=== PATIENT | female | born 1935 | race Caucasian/White ===

== ENCOUNTER 2023-08-12 16:23 | Emergency (ER) | payer OTHER ==
[~2023-08-12] VITALS: Ht 160 cm; Wt 85.0 kg
[~2023-08-12 16:23] MED LIST: ASPI-1009 PO; CETI10CA PO; CHOL100010 PO; CYAN1TAB41 PO; GLUC-219 PO; L. A1CAP7 PO; NAPR220C15 PO; OMEG-79 PO; RED30POW PO; SYN0.0125T PO
[2023-08-12 16:27] VITALS: BP 155/58; PULSE 77; RESP 16; TEMP 98.5; O2SAT 96
== END 2023-08-12 17:29 | disposition home or self-care (01) ==
LOC: ER 16:25
DX: S42.291A Other displaced fracture of upper end of right humerus, initial encounter for closed fracture (principal); W18.39XA Other fall on same level, initial encounter; Y93.89 Activity, other specified; Y92.89 Other specified places as the place of occurrence of the external cause; Y99.8 Other external cause status
CPT/HCPCS: 73030; 99283

== ENCOUNTER 2025-06-30 11:42 | Emergency (ER) | payer OTHER ==
[~2025-06-30] VITALS: Ht 157.5 cm; Wt 84.1 kg
[2025-06-30 12:37] LABS: LEUKOCYTE ESTERASE ,URINE TRACE (Neg); NITRITES, URINE NEGATIVE (Neg); OCCULT BLOOD,URINE TRACE-INTACT (Neg)
[2025-06-30 12:41] LABS: UA COLLECTION TYPE CLN CATCH MIDSTREAM
[2025-06-30 12:42] LABS: MUCUS STRANDS FEW /LPF (Neg); SQUAMOUS EPITHELIAL CELL,UR NONE SEEN /LPF (FEW)
[2025-06-30 13:11] LABS: MEAN PLATELET VOLUME 8.2 FL (7.4-10.4); RED CELL DISTRIBUTION WIDTH 13.5 % (11.5-14.5)
[2025-06-30 13:20] LABS: CREATININE 0.72 MG/DL (0.40-0.90); TOTAL CARBON DIOXIDE 26.0 MMOL/L (24-32); eCRCL 42 ML/MIN; eGFR 76 ML/MIN
--- NOTE | 2025-06-30 15:29 | Physician Documentation ---
History of Present Illness ~ Chief Complaint: Urinary Symptoms Stated Complaint: UTI/ABNORMAL LABS Time Seen by MD: 14:02 Source: patient, family Mode of Arrival: POV Exam Limitations: no limitations HPI Patient is accompanied by her daughter. She was sent from [facility] for urinary tract infection. States that she has had frequent urinary tract infections ongoing for the past couple of years. Has been on antibiotics since the beginning of June for her current symptoms. States intermittently feels like the cyst that rupture . She states that she feels like she can not sit down secondary to this. She has had blood in her urine but none currently. Last urine culture finalized on March 29, 2025 which showed susceptibility to Levaquin. Sent for liquid antibiotics" Medication Reconciliation Allergies: Coded Allergies: codeine (Verified Allergy, Intermediate, RASH, N/V, SORES, 03/12/16) phenobarbital (Verified Allergy, Mild, "A LITTLE PUTS ME DOWN", 03/12/16) Procaine HCl (Verified Allergy, Unknown, 01/15/13) Uncoded Allergies: COFFEE (Allergy, Mild, UPSET STOMACH, 07/22/16) Scheduled Aspirin (Aspirin), 81 MG PO DAILY, (Reported) Cetirizine Hcl (Zyrtec), 10 MG PO DAILY, (Reported) Cholecalciferol* (Vitamin D*), 2,000 UNITS PO DAILY, (Reported) Cyanocobalamin/Folic Acid (Vitamin C42-Dbddl Acid Tablet), 1 EACH PO DAILY, (Reported) Gluc/MSM/C/[place]/Manganese/Coco (Joint Support Complex Softgel), 1 TAB PO DAILY, (Reported) L. Acidophilus/Bifid. Animalis (Probiotic 5 Billion Cell Cap), 50 MIU PO DAILY, (Reported) Levofloxacin (Levofloxacin), 500 MG PO Q48H Levothyroxine Sodium* (Synthroid*), 125 MCG PO DAILY, (Reported) Naproxen Sodium* (Aleve*), 220 MG PO BID, (Reported) [place]-3 Fatty Acids/Fish Oil (Fish Oil 1,000 Mg Softgel), 2 EACH PO DAILY, (Reported) Red Yeast Rice Extract (Red Yeast Rice), 1 TAB PO DAILY, (Reported) Past Medical History Past Medical History: High Cholesterol, Hypothyroidism Past Surgical History: no surgical history Review of Systems ROS As stated above in the HPI, otherwise all systems are reviewed and negative. Physical Exam Vital Signs: RN Vital Signs have been reviewed: Yes, Temperature: 97.5, Source: Temporal, Heart Rate: 59, Respiratory Rate: 16, BP: 157/52, Pulse Oximetry: 99, Weight: 84.090 Pulse Oximetry Reflects: adequate oxygenation Physical Exam General: Awake, alert, oriented. No apparent distress Neck: Supple. Normal range of motion. No JVD Respiratory: Lungs are clear to auscultation bilaterally. No respiratory distress. Chest: Normal shape and size. No accessory muscle use. Cardiovascular: Regular rate and rhythm. S1-S2. II/ COOPER RUSB Gastrointestinal: Abdomen is soft. Nontender to palpation. Bowel sounds present. No pelvic tenderness on palpation. External genitalia examined and normal Extremities: No lower extremity edema, cyanosis or clubbing. Neurologic: Alert and oriented x4. Nonfocal Psychiatric: Normal mood and affect. Skin: Normal color. Warm and dry. Progress Results/Orders Results/Orders Orders - YORDAN HORTA TIME BUYER Ultrasound Pelvis W/Orwo Dplx (06/30/25 14:51) Completed Orders - YORDAN HORTA TIME BUYER Levofloxacin 750mg Tablet (Levaquin 750m (06/30/25 15:25) Ultrasound Pelvis W/Orwo Dplx (06/30/25 14:51) Procalcitonin (06/30/25 16:35) Medications Received in ER Medications (Trade) Dose Ordered Sig/Monika Route PRN Reason Start Time Stop Time Status Last Admin Dose Admin (LEVAQUIN 750mg TABLET) 750 mg ONCE ONCE PO 06/30/25 15:25 06/30/25 15:26 DC 06/30/25 15:50 750 MG Vital Signs 06/30/25 06/30/25 06/30/25 06/30/25 11:52 12:56 13:22 14:46 Temp 97.7 97.8 97.5 Pulse 63 59 59 Resp 18 20 18 16 B/P (MAP) 174/51 141/47 (78) 157/52 (87) Pulse Ox 97 98 99 06/30/25 17:25 Temp 97.7 Pulse 60 Resp 18 B/P (MAP) 138/45 Pulse Ox 97 Laboratory Tests Test 06/30/25 12:00 06/30/25 12:33 Urine Specimen Description Cln catch midstream Urine Color Yellow Urine Clarity Clear Urine pH 5.5 Urine Specific Ledbetter <=1.005 Urine Protein Negative Urine Glucose (UA) Negative Urine Ketones Negative Urine Occult Blood Trace-intact Urine Nitrite Negative Urine Bilirubin Negative Urine Urobilinogen 0.2 Urine Leukocyte Esterase Trace H Urine RBC 0-2 Urine WBC 5-10 H Urine Squamous Epithelial Cells None seen Urine Bacteria None seen Urine Mucus Few Urine Culture Indicated Indicated Volume Urine Centrifuged 10 ml Urine Comment White Blood Count 8.2 Red Blood Count 4.15 L Hemoglobin 12.6 Hematocrit 38.1 Mean Corpuscular Volume 91.7 Mean Corpuscular Hemoglobin 30.4 Mean Corpuscular Hemoglobin Concent 33.1 Red Cell Distribution Width 13.5 Platelet Count 278 Mean Platelet Volume 8.2 Neutrophils (%) (Auto) 61.5 Lymphocytes (%) (Auto) 26.3 Monocytes (%) (Auto) 9.5 Eosinophils (%) (Auto) 2.2 Basophils (%) (Auto) 0.5 Neutrophils # (Auto) 5.1 Lymphocytes # (Auto) 2.2 Monocytes # (Auto) 0.8 Eosinophils # (Auto) 0.2 Basophils # (Auto) 0.0 CBC Comment Sodium Level 141 Potassium Level 4.7 Chloride Level 107 Carbon Dioxide Level 26.0 Anion Gap 8 Blood Urea Nitrogen 18 Creatinine 0.72 Estimated GFR/1.73 m2 76 BUN/Creatinine Ratio 25.0 H Glucose Level 115 H Calcium Level 8.8 Total Bilirubin 0.4 Aspartate Amino Transf (AST/SGOT) 19 Alanine Aminotransferase (ALT/SGPT) 19 Alkaline Phosphatase 60 Total Protein 7.1 Albumin 3.5 Globulin 3.6 Albumin/Globulin Ratio 1.0 L Lipase 68 Procalcitonin < 0.05 Chemistry Comments Microbiology Date/Time Source Procedure Growth Status 06/30/25 12:43 Urine Clean Catch Midstream Urine Culture - Preliminary Culture received. Resulted EKG/XRAY/CT/US/VASC/MRI Ultrasound : Interpreted By: radiologist Ultrasound of: pelvis Impression [address], [facility] [id number] ULTRASOUND Patient: GLORIA VALENTE Medical Record: [id number] 1935, Age: 89 Sex: Female Location: ER Patient Status: [facility] ER Service Date/Time: 06/30/251450 Ordering Physician: YORDAN HORTA NP Exam: ULTRASOUND PELVIS W/ORWO DPLX EXAM: US ULTRASOUND PELVIS W/ORWO DPLX HISTORY:: pelvic pain, feels like there are cysts. COMPARISON: None TECHNIQUE:: Transabdominal and transvaginal imaging was utilized. Grayscale and color doppler evaluation. Images were stored in the patient's permanent medical record. FINDINGS: UTERUS: 5.2 x 2.6 x 3.4 cm. Endometrial stripe: 0.2 cm. Small subendometrial cysts. Junctional zone appears within normal limits RIGHT OVARY: Nonvisualized LEFT OVARY: Nonvisualized OTHER: No free fluid is identified. IMPRESSION: 1. Limited evaluation with nonvisualization of the ovaries. 2. Trace subendometrial cysts. 3. Normal endometrial stripe thickening. Electronically Signed by:DAVID TRAN MD Date & Time: 06/30/251742 Dictated by: DAVID TRAN MD Dictation date and time: 06/30/251742 Primary Care Provider: NO PRIMARY CARE PROVIDER cc: YORDAN HORTA TIME BUYER ~ Medical Decision Making Additional information obtaine: family, other Findings Patient presents from her assisted living facility secondary to urinary tract infection. She comes with a culture result which was reviewed. Urine culture finalized June 28, 2025. Sensitive to Levaquin. She was sent for liquid antibiotics. She is otherwise well-appearing. Up and ambulatory. No abdominal pain. She states she has had frequent urinary tract infections over the past two years. Has been on an antibiotics intermittently. Medication reconciliation was reviewed. Last antibiotic was amoxicillin. She was complaining of intermittent blood in her urine and feeling like cyst pop. Therefore a pelvic ultrasound was completed with no source seen. She is urinating. Normal bowel movements. No abdominal pain on palpation. Laboratory evaluation showed WBC 8.2, H/H 12.6/38.1. Pro Nas <0.05. Her Cr 0.76 and eGFR 76. Her urine showed there is trace leukocyte esterase, white blood cells and mucus. Given her recent culture with sensitivity to Levaquin she will be treated as such. Recommend that she follow closely with her primary care provider. He has been referred to a director community health nursing already secondary to her frequent urinary tract infections and the feeling is "cysts pop. Her VSS. Given lack of abd pain there is low clinical suspicion for appendicitis, diverticulitis, or any other acute intra-abdominal emergency. All questions answered and she will follow up with her primary care provider The case was discussed with the attending physician, Yennifer. The plan of care, diagnostic evaluation and medical decision making were discussed. The attending physician was available for consultation, where the diagnostic findings as well as the eventual disposition. Urinary Diff Dx:Considerations: Include: Impaction, Pancreatitis, PID, Pyelonephritis, Renal failure, Urinary Obstruction, Urinary retention, UTI, Vaginitis Genital Diff Dx:Considerations: Include: Other Departure Time of Disposition: 16:39 Disposition: 01 HOME / SELF CARE / HOMELESS Impression: Primary Impression: Complicated UTI (urinary tract infection) Condition: Stable Discharge Instructions: Urinary Tract Infection, Adult Additional Instructions: Take antibiotics as prescribed. He will take Levaquin every 48 hours till completed with a total of three more doses. Stay well hydrated. Follow up with primary care provider. Given frequency of urinary tract infections that would be recommended that you follow up with Urology. Your primary care we will need to do a referral for this. We did a culture today of your urine. We will call you if any changes to antibiotics are required. Please return for new or worsening symptoms. Recommend labs in the next three days to check kidney function given the antibiotic that you are on. Referrals: NO PRIMARY CARE PROVIDER (PCP) Prescriptions Levofloxacin (Levofloxacin) 500 Mg Tablet 500 MG PO Q48H, #3 TAB Prov: YORDAN HORTA NP 06/30/25 Education Educated: Patient Educated regarding: diagnosis, treatment, need for follow up Signature Scribe Signature: No scribe Attestation: The note accurately reflects work and decisions made by me.Yordan Horta - LUCERO 06/30/25 21:45 This note was created with the assistance of voice recognition software whereby errors in grammar, syntax, and/or spelling may have occurred despite active proofreading efforts by the author. Please do not hesitate to contact the provider for clarification or for questions regarding the content of this document. YORDAN HORTA NP Jun 30, 2025 15:29
[2025-06-30] MEDS: levoFLOXACIN 750MG TABLET PO ONE (15:50)
[2025-06-30] MEDS ORDERED: LEVO-65 PO (16:47)
[2025-06-30 17:25] VITALS: BP 138/45; PULSE 60; RESP 18; TEMP 97.7; O2SAT 97
--- NOTE | 2025-06-30 17:45 | RADIOLOGY REPORT ---
EXAM: US ULTRASOUND PELVIS W/ORWO DPLX HISTORY:: pelvic pain, feels like there are cysts. COMPARISON: None TECHNIQUE:: Transabdominal and transvaginal imaging was utilized. Grayscale and color doppler evaluation. Images were stored in the patient's permanent medical record. FINDINGS: UTERUS: 5.2 x 2.6 x 3.4 cm. Endometrial stripe: 0.2 cm. Small subendometrial cysts. Junctional zone appears within normal limits RIGHT OVARY: Nonvisualized LEFT OVARY: Nonvisualized OTHER: No free fluid is identified. IMPRESSION: 1. Limited evaluation with nonvisualization of the ovaries. 2. Trace subendometrial cysts. 3. Normal endometrial stripe thickening.
== END 2025-06-30 17:28 | disposition home or self-care (01) ==
LOC: ER 11:43
DX: N39.0 Urinary tract infection, site not specified (principal); E78.00 Pure hypercholesterolemia, unspecified; E03.9 Hypothyroidism, unspecified; Z87.440 Personal history of urinary (tract) infections; Z88.5 Allergy status to narcotic agent; Z79.899 Other long term (current) drug therapy; Z79.82 Long term (current) use of aspirin
CPT/HCPCS: 36415; 76830; 76856; 80053; 81001; 83690; 84145; 85025; 87088; 93976; 99284